=== PATIENT | female | born 1995 | race Caucasian/White ===

== ENCOUNTER 2021-06-24 07:58 | Inpatient (IN) | payer BC, OTHER ==
[~2021-06-24] VITALS: Ht 157.5 cm; Wt 88.9 kg
[2021-06-24] MEDS ORDERED: BUTORPHANOL TARTRATE 2 MG/ML VIAL IV PRN (09:30)
[2021-06-24] MEDS ORDERED: NALOXONE HCL 0.4 MG/ML 1ML VIAL IM PRN (09:30)
[2021-06-24] MEDS ORDERED: CARBOPROST TROMETHAMINE 250 MCG/ML AMPUL IM PRN (09:30)
[2021-06-24] MEDS ORDERED: LIDOCAINE HCL 1% 20ML VIAL (Pyxis) INJ INFIL SCH (09:30)
[2021-06-24] MEDS ORDERED: METHYLERGONOVINE MALEATE 0.2 MG/ML IM PRN (09:30)
[2021-06-24] MEDS: LACTATED RINGERS 1,000 ML IV SCH ×3 (10:14→14:44)
[2021-06-24] MEDS ORDERED: PENICILLIN G POTASSIUM 5 MMU in DEXT 5% WATER 100 ML IV NR (10:30)
[2021-06-24 10:51] LABS: BASOPHILS % 0.4 % (0.0-2.0); EOSINOPHILS % 0.7 % (0.0-5.0); HEMATOCRIT. 37.1 % (36.0-48.0); HEMOGLOBIN. 12.1 g/dL (12.0-16.0); LYMPHOCYTES % 30.1 % (20.0-50.0); MEAN CORPUSCULAR HEMOGLOBIN 29.1 pg (28.0-32.0); MEAN CORPUSCULAR VOLUME 88.8 fL (81.0-99.0); MEAN PLATELET VOLUME 9.8 fl (7.4-10.4); MONOCYTES % 5.9 % (2.0-8.0); NEUTROPHILS % 62.9 % (40.0-76.0); PLATELET 299 x1000/uL (130-400); RED BLOOD CELL COUNT 4.17 mill/uL (4.2-5.4)
[2021-06-24 10:54] LABS: CLARITY URINE CLOUDY (CLEAR); COLOR URINE DARK YELLOW (YELLOW); KETONES URINE TRACE (NEGATIVE); LEUKOCYTE ESTERASE URINE 2+ (NEGATIVE); NITRITE URINE NEGATIVE (NEGATIVE); OCCULT BLOOD URINE NEGATIVE (NEGATIVE); PROTEIN URINE 2+ (NEGATIVE); SPECIFIC GRAVITY URINE 1.025 (1.005-1.030)
[2021-06-24] MEDS: DEXT 5%/LR + PITOCIN 20UNITS/L 1,000 ML IV SCH ×3 (10:57→21:42)
[2021-06-24] MEDS ORDERED: ROPIVACAINE HCL/PF EPIDURAL 200 ML EPI SCH (11:00)
[2021-06-24 11:05] LABS: *AMPHETAMINES SCREEN URINE NEGATIVE (NEGATIVE); *BARBITURATES SCREEN URINE NEGATIVE (NEGATIVE); *BENZODIAZEPINES SCREEN URINE NEGATIVE (NEGATIVE); *COCAINE SCREEN URINE NEGATIVE (NEGATIVE)
[2021-06-24 11:06] LABS: CANNABINOID URINE SCREEN NEGATIVE (NEGATIVE); METHADONE URINE SCREEN NEGATIVE (NEGATIVE); OPIATES URINE SCREEN NEGATIVE (NEGATIVE); PHENCYCLIDINE URINE SCREEN NEGATIVE (NEGATIVE)
[2021-06-24] MEDS ORDERED: ROPIVACAINE HCL/PF EPIDURAL 200 ML EPI ONE (12:07)
[2021-06-24] MEDS ORDERED: PREN1TAB78 MT (12:36)
[2021-06-24] MEDS ORDERED: VITA250012 MT (12:36)
[2021-06-24] MEDS ORDERED: FERR325T6 MT (12:36)
[2021-06-24 13:00] LABS: INR 0.9; PARTIAL THROMBOPLASTIN TIME 24.8 sec (23.4-31.0); PROTHROMBIN TIME 10.2 sec (9.6-11.0)
[2021-06-24] MEDS ORDERED: PENICILLIN G POTASSIUM 2.5 MMU in DEXTROSE 5% WATER 50 ML IV SCH (14:00)
[2021-06-24 14:12] LABS: HEPATITIS B SURFACE ANTIGEN NEGATIVE
[2021-06-24] MEDS ORDERED: ACETAMINOPHEN WITH CODEINE 300/30MG TABLET PO PRN (19:30)
[2021-06-24] MEDS ORDERED: LANOLIN OINT 7GM TUBE TOP PRN (19:30)
[2021-06-24] MEDS ORDERED: DEXT 5%/LR + PITOCIN 20UNITS/L 1,000 ML IV SCH (19:30)
[2021-06-24] MEDS ORDERED: HEMORRHOIDAL SUPP PR PRN (19:30)
[2021-06-24] MEDS ORDERED: BISACODYL 10MG SUPP PR PRN (19:30)
[2021-06-24] MEDS ORDERED: IBUPROFEN 400MG TABLET PO PRN (19:30)
[2021-06-24] MEDS ORDERED: RHO(D) IMMUNE GLOBULIN 300 MCG/SYR IM PRN (19:30)
[2021-06-24 21:20] VITALS: BP 108/66
[2021-06-24] MEDS: MAGNESIUM/ALUMINUM HYDROXIDE/SIMETHICONE 30ML UDC PO SCH (21:41)
[2021-06-24] MEDS: SIMETHICONE 80MG TABLET CHEW PO SCH (21:42)
[2021-06-24] MEDS: DOCUSATE SODIUM 100MG CAPSULE PO SCH (21:42)
[2021-06-24] MEDS: IBUPROFEN 800MG TABLET PO PRN (21:42)
[2021-06-24] MEDS: GLYCERIN/WITCH HAZEL LEAF MEDICATED PAD TOP PRN (21:47)
[2021-06-24] MEDS: BENZOCAINE/LANOLIN/ALOE VERA SPRAY TOP PRN (21:47)
[2021-06-24 22:20] VITALS: BP 123/68
[2021-06-24 23:20] VITALS: BP 121/66
[2021-06-25 03:45] VITALS: BP 125/64
[2021-06-25 06:39] LABS: BASOPHILS % 0.2 % (0.0-2.0); EOSINOPHILS % 0.3 % (0.0-5.0); HEMATOCRIT. 29.4 % (36.0-48.0); HEMOGLOBIN. 9.7 g/dL (12.0-16.0); LYMPHOCYTES % 20.3 % (20.0-50.0); MEAN CORPUSCULAR HEMOGLOBIN 28.9 pg (28.0-32.0); MEAN CORPUSCULAR VOLUME 87.2 fL (81.0-99.0); MONOCYTES % 6.6 % (2.0-8.0); NEUTROPHILS % 72.6 % (40.0-76.0); PLATELET 212 x1000/uL (130-400); RED BLOOD CELL COUNT 3.37 mill/uL (4.2-5.4); RED CELL DISTRIBUTION WIDTH 14.9 % (11.6-14.6)
[2021-06-25] MEDS: MAGNESIUM/ALUMINUM HYDROXIDE/SIMETHICONE 30ML UDC PO SCH ×4 (07:30→21:00)
[2021-06-25] MEDS: FERROUS SULFATE 325MG TABLET PO SCH ×3 (07:30→18:26)
[2021-06-25] MEDS: SIMETHICONE 80MG TABLET CHEW PO SCH ×4 (08:00→21:00)
[2021-06-25 08:30] VITALS: BP 112/70
[2021-06-25] MEDS: PRENATAL VIT/FE FUMARATE/FA TABLET PO SCH (09:07)
[2021-06-25] MEDS: GLYCERIN/WITCH HAZEL LEAF MEDICATED PAD TOP PRN (09:08)
[2021-06-25] MEDS: BENZOCAINE/LANOLIN/ALOE VERA SPRAY TOP PRN (09:08)
[2021-06-25] MEDS: IBUPROFEN 800MG TABLET PO PRN ×2 (13:57→21:53)
[2021-06-25 15:46] VITALS: BP 121/66
[2021-06-25] MEDS ORDERED: MEASLES,MUMPS&RUBELLA VACCINE 1 VIAL SUBCUT ONE (20:00)
[2021-06-25] MEDS: DOCUSATE SODIUM 100MG CAPSULE PO SCH (21:00)
[2021-06-25 22:00] VITALS: BP 114/72
[2021-06-26 06:00] VITALS: BP 114/80
[2021-06-26 07:52] VITALS: BP 120/81
[2021-06-26] MEDS: PRENATAL VIT/FE FUMARATE/FA TABLET PO SCH (08:22)
[2021-06-26] MEDS: MAGNESIUM/ALUMINUM HYDROXIDE/SIMETHICONE 30ML UDC PO SCH (08:22)
[2021-06-26] MEDS: SIMETHICONE 80MG TABLET CHEW PO SCH (08:22)
[2021-06-26] MEDS: FERROUS SULFATE 325MG TABLET PO SCH (08:22)
[2021-06-26] MEDS: IBUPROFEN 800MG TABLET PO PRN (08:26)
== END 2021-06-26 11:45 | disposition home or self-care (01) | DRG 807 ==
LOC: OBSVTOIN 07:58 → 8 EST LDRP 07:58 → 8EST 21:37
PROVIDERS: ADMIT Obstetrics & Gynecology; ATTEND Obstetrics & Gynecology
PROC: 10D07Z6 Extraction of Products of Conception, Vacuum, Via Natural or Artificial Opening (ICD-10-PCS; principal; 2021-06-24)
PROC: 0KQM0ZZ Repair Perineum Muscle, Open Approach (ICD-10-PCS; 2021-06-24)
DX: O70.1 Second degree perineal laceration during delivery (principal); Z37.0 Single live birth; Z3A.37 37 weeks gestation of pregnancy; Z20.822 Contact with and (suspected) exposure to COVID-19
CPT/HCPCS: 36415; 76805; 76818; 80305; 81003; 85025; 86592; 86703; 86762; 86850; 86900; 87340; 87426; 90707; 99281; J2540; J2590; J2795; J7060; J7120; A4315